=== PATIENT | male | born 1995 | race Asian ===

== ENCOUNTER 2022-07-27 19:40 | Emergency (ER) | payer SELFPAY ==
[~2022-07-27] VITALS: Ht 180.3 cm; Wt 81.6 kg
[2022-07-27 19:45] VITALS: BP_SYST 133
--- NOTE | 2022-07-27 19:57 | NUR ---
CALLED PT FOR TRIAGE. NO RESPONSE.
[2022-07-27 21:05] LABS: BASOPHILS # (AUTO) 0.1 K/uL (0.0-0.2); BASOPHILS % (AUTO) 1.5 % (0.0-2.0); EOSINOPHILS # (AUTO) 0.1 K/uL (0.0-0.4); EOSINOPHILS % (AUTO) 3.3 % (0.0-4.0); HEMATOCRIT 31.6 % (36-54); HEMOGLOBIN 10.7 g/dL (14.0-18.0); LYMPHOCYTES # (AUTO) 0.4 K/uL (1.0-5.5); LYMPHOCYTES % (AUTO) 10.9 % (20.5-51.5); MEAN CORPUSCULAR HEMOGLOBIN 29 pg (27-31); MEAN CORPUSCULAR HGB CONC 34 % (32-36); MEAN CORPUSCULAR VOLUME 86 fL (79.0-98.0); MONOCYTES # (AUTO) 0.3 K/uL (0.0-1.0); MONOCYTES % (AUTO) 8.9 % (1.7-9.3); NEUTROPHILS # (AUTO) 2.7 K/uL (1.8-7.7); NEUTROPHILS % (AUTO) 75.4 % (40.0-70.0); PLATELET COUNT (AUTO) 300 K/uL (130-430); RED CELL DISTRIBUTION WIDTH 15.6 % (9.0-15.0); WHITE BLOOD COUNT (AUTO) 3.6 K/uL (4.8-10.8)
--- NOTE | 2022-07-27 21:08 | NUR ---
Patient to ER bed 4 to gown for evaluation. Side rails up. Report given to MEHDI WYNNE.
--- NOTE | 2022-07-27 21:15 | NUR ---
PATIENT IS AWAKE AND ALERT BIB AMB FROM HOME C/O RLQ ABD PAIN W/ NAUSEA AND VOMITING ONSET TODAY. + FOR BLOOD IN THE URINE. PAIN STATED 05/25. SAFETY PRECAUTIONS IN PLACE, WILL CONTINUE TO MONITOR.
--- NOTE | 2022-07-27 21:25 | NUR ---
PAL JUNE SIN AT BEDSIDE EXAMINING PATIENT.
[2022-07-27] MEDS ORDERED: MORPHINE 4 MG INJ. 4 MG/ML VIAL IVP ONE (21:30)
[2022-07-27] MEDS ORDERED: NACL 0.9% 1,000 ML IV ONE (21:30)
[2022-07-27 21:31] LABS: CALCIUM 9.7 mg/dL (8.4-11.0); CREATININE 0.97 mg/dL (0.55-1.30)
[2022-07-27 21:37] LABS: ALBUMIN 3.4 g/dL (3.4-4.8); TOTAL BILIRUBIN 0.3 mg/dL (0.0-1.0)
[2022-07-27 21:41] LABS: BILIRUBIN,URINE NEGATIVE (NEGATIVE); BLOOD, URINE 3+ (NEGATIVE); CLARITY/URINE CLEAR (CLEAR); COLOR,URINE YELLOW (YELLOW); GLUCOSE,URINE NEGATIVE (NEGATIVE); KETONES,URINE NEGATIVE (NEGATIVE); LEUKOCYTE ESTERASE ,URINE 1+ (NEGATIVE); NITRITE, URINE NEGATIVE (NEGATIVE); PH,URINE 6.5 (5.0-8.0); PROTEIN URINE TRACE (NEGATIVE); UROBILINOGEN,URINE 0.2 (0.2-1.0)
[2022-07-27] MEDS ORDERED: ONDANSETRON HCL 4 MG/2 ML VIAL IVP ONE (21:45)
[2022-07-27] MEDS ORDERED: FAMOTIDINE PF 20 MG/2 ML VIAL IVP ONE (21:45)
[2022-07-27] MEDS ORDERED: PIPERACILLIN/TAZO 3.375 GM in NS 50 ML IV ONE (21:45)
[2022-07-27 21:51] LABS: BACTERIA,URINE FEW /HPF (None Seen); MUCUS,URINE None Seen /LPF (None Seen); RBC,URINE 20-50 /HPF (0-3)
[2022-07-27] MEDS ORDERED: PIPERACILLIN/TAZOBACTAM 3.375 GM/VIAL (ZOSYN) IV ONE (22:29)
--- NOTE | 2022-07-27 23:15 | NUR ---
PATIENT RESTING IN BED. VSS. WILL CONTINUE TO MONITOR.
[2022-07-27] MEDS ORDERED: HYDROmorphone 1 MG/ML INJ. CARTRIDGE IVP ONE (23:45)
[2022-07-28] MEDS ORDERED: LEVO750T64 PO (01:53)
[2022-07-28] MEDS ORDERED: HYDR-3927 PO (01:53)
[2022-07-28] MEDS ORDERED: HYDROcodone/ACETAMIN 5-325 MG TAB (NORCO/ VICODIN) PO ONE (02:00)
[2022-07-28 02:15] VITALS: BP_SYST 137
--- NOTE | 2022-07-28 02:15 | NUR ---
Patient given written and verbal discharge instructions and verbalizes understanding. ER MD MARTINEZ discussed with patient the results and treatment provided. Patient in stable condition. ID arm band removed. IV catheter removed intact and dressing applied, no active bleeding. Rx of NORCO, AND LEVAQUIN given. Patient educated on pain management and to follow up with PMD. Pain Scale 3/10. Opportunity for questions provided and answered. Medication side effect fact sheet provided.
== END 2022-07-28 02:15 | disposition home or self-care (01) ==
LOC: SED 19:40
DX: N39.0 Urinary tract infection, site not specified (principal); R10.31 Right lower quadrant pain; R30.0 Dysuria; R11.0 Nausea; Z79.899 Other long term (current) drug therapy
CPT/HCPCS: 99284; 74176; 96365; 96375; 71045; 80053; 81000; 83690; 85025; 87040; 87086; 36415; 76376; 83605; J3490; J2405; J2543; J1170; J2270; J7030

== ENCOUNTER 2023-04-25 02:00 | Emergency (ER) | payer MEDICAID ==
[~2023-04-25] VITALS: Ht 182.9 cm; Wt 69.9 kg
[~2023-04-25 02:00] MED LIST: HYDR-3927 PO; LEVO750T64 PO
[2023-04-25 02:10] VITALS: BP_SYST 126; PULSE 109; RESP 18; TEMP 97; O2SAT 98
[2023-04-25] MEDS ORDERED: MORPHINE 4 MG INJ. 4 MG/ML VIAL IVP ONE (02:15)
[2023-04-25] MEDS ORDERED: fentaNYL CITRATE/PF 100 MCG/2 ML AMP IVP ONE (02:30)
[2023-04-25] MEDS ORDERED: NACL 0.9% 1,000 ML IV ONE (03:00)
[2023-04-25 03:45] LABS: CALCIUM 9.3 mg/dL (8.4-11.0); CREATININE 0.77 mg/dL (0.55-1.30); POTASSIUM 3.5 mmol/L (3.5-5.1)
[2023-04-25] MEDS ORDERED: HYDROmorphone 1 MG/ML INJ. CARTRIDGE IVP ONE ×2 (03:45→04:00)
[2023-04-25 03:50] LABS: ALBUMIN 3.8 g/dL (3.4-4.8); TOTAL BILIRUBIN 0.6 mg/dL (0.0-1.0); TOTAL PROTEIN, SERUM 8.2 g/dL (6.4-8.3)
[2023-04-25 03:51] LABS: BASOPHILS % (AUTO) 0.2 % (0.0-2.0); EOSINOPHILS % (AUTO) 0.6 % (0.0-4.0); HEMATOCRIT 30.4 % (36-54); HEMOGLOBIN 10.2 g/dL (14.0-18.0); LYMPHOCYTES # (AUTO) 0.4 K/uL (1.0-5.5); LYMPHOCYTES % (AUTO) 11.9 % (20.5-51.5); MEAN CORPUSCULAR HEMOGLOBIN 29 pg (27-31); MEAN CORPUSCULAR HGB CONC 33 % (32-36); MEAN CORPUSCULAR VOLUME 86 fL (79.0-98.0); MONOCYTES # (AUTO) 0.1 K/uL (0.0-1.0); MONOCYTES % (AUTO) 1.9 % (1.7-9.3); NEUTROPHILS # (AUTO) 2.7 K/uL (1.8-7.7); NEUTROPHILS % (AUTO) 85.4 % (40.0-70.0); PLATELET COUNT (AUTO) 169 K/uL (130-430); RED BLOOD CELL COUNT(AUTO) 3.55 MIL/uL (4.2-6.2); RED CELL DISTRIBUTION WIDTH 14.2 % (9.0-15.0); WHITE BLOOD COUNT (AUTO) 3.1 K/uL (4.8-10.8)
[2023-04-25 05:35] VITALS: BP_SYST 108; PULSE 83; RESP 15; TEMP 97.7; O2SAT 97
== END 2023-04-25 05:35 | disposition home or self-care (01) ==
LOC: SED 02:00
DX: C79.9 Secondary malignant neoplasm of unspecified site (principal); G89.18 Other acute postprocedural pain; M25.551 Pain in right hip; Z85.51 Personal history of malignant neoplasm of bladder; Z85.54 Personal history of malignant neoplasm of ureter; Z79.899 Other long term (current) drug therapy
CPT/HCPCS: 99285; 96374; 71045; 96361; 96375; 80053; 85025; 36415; 96376; J3010; J1170; J7030; J2270

== ENCOUNTER 2023-04-27 20:53 | Emergency (ER) | payer MEDICAID ==
[~2023-04-27] VITALS: Ht 172.7 cm; Wt 65.8 kg
[2023-04-27 21:00] VITALS: BP_SYST 125; PULSE 106; RESP 18; TEMP 98.4; O2SAT 99
[2023-04-27] MEDS ORDERED: MORPHINE 4 MG INJ. 4 MG/ML VIAL IVP ONE (23:00)
[2023-04-27] MEDS ORDERED: NACL 0.9% 1,000 ML IV ONE ×2 (23:00)
[2023-04-27] MEDS ORDERED: HYDROmorphone 1 MG/ML INJ. CARTRIDGE IVP ONE (23:30)
[2023-04-28] MEDS ORDERED: HYDROmorphone 1 MG/ML INJ. CARTRIDGE IVP ONE (01:45)
[2023-04-28 03:40] VITALS: BP_SYST 101; PULSE 88; RESP 16; TEMP 98.4; O2SAT 98
== END 2023-04-28 03:40 | disposition home or self-care (01) ==
LOC: SED 20:53
DX: R10.30 Lower abdominal pain, unspecified (principal); C67.9 Malignant neoplasm of bladder, unspecified; Z85.51 Personal history of malignant neoplasm of bladder; Z85.54 Personal history of malignant neoplasm of ureter; Z79.899 Other long term (current) drug therapy
CPT/HCPCS: 99285; 74176; 96374; 71045; 96361; 76376; 96376; J1170 ×2; J7030

== ENCOUNTER 2023-07-17 23:13 | Emergency (ER) | payer MEDICAID ==
[~2023-07-17] VITALS: Ht 177.8 cm; Wt 68.0 kg
[2023-07-17 23:23] VITALS: BP_SYST 109; PULSE 110; RESP 16; TEMP 97.9; O2SAT 100
[2023-07-17] MEDS ORDERED: NACL 0.9% 1,000 ML IV ONE (23:30)
[2023-07-17] MEDS ORDERED: HYDROmorphone 1 MG/ML INJ. CARTRIDGE IVP ONE (23:30)
[2023-07-18] MEDS ORDERED: MORPHINE 4 MG INJ. 4 MG/ML VIAL IM ONE (00:30)
[2023-07-18 00:40] LABS: BILIRUBIN,URINE NEGATIVE (NEGATIVE); BLOOD, URINE NEGATIVE (NEGATIVE); COLOR,URINE YELLOW (YELLOW); GLUCOSE,URINE NEGATIVE (NEGATIVE); KETONES,URINE NEGATIVE (NEGATIVE); LEUKOCYTE ESTERASE ,URINE 1+ (NEGATIVE); NITRITE, URINE POSITIVE (NEGATIVE); PROTEIN URINE NEGATIVE (NEGATIVE); UROBILINOGEN,URINE 0.2 (0.2-1.0)
[2023-07-18 00:52] LABS: CLARITY/URINE SLIGHTLY CLOUDY (CLEAR)
[2023-07-18 00:53] LABS: RBC,URINE 0-3 /HPF (0-3)
[2023-07-18 00:54] LABS: BACTERIA,URINE MANY /HPF (None Seen); WBC,URINE 20-50 /HPF (0-3)
[2023-07-18] MEDS ORDERED: cefTRIAXone 1 GM IVPB PREMIX 50 ML IV ONE (01:15)
[2023-07-18 01:24] LABS: CALCIUM 9.9 mg/dL (8.4-11.0); CREATININE 0.74 mg/dL (0.55-1.30); POTASSIUM 3.5 mmol/L (3.5-5.1)
[2023-07-18 01:29] LABS: HEMOGLOBIN 9.7 g/dL (14.0-18.0); MEAN CORPUSCULAR HEMOGLOBIN 31 pg (27-31); MEAN CORPUSCULAR HGB CONC 35 % (32-36); MEAN CORPUSCULAR VOLUME 89 fL (79.0-98.0); PLATELET COUNT (AUTO) 96 K/uL (130-430); RED BLOOD CELL COUNT(AUTO) 3.15 MIL/uL (4.2-6.2); RED CELL DISTRIBUTION WIDTH 15.6 % (9.0-15.0)
[2023-07-18 01:30] LABS: ALBUMIN 3.8 g/dL (3.4-4.8); TOTAL BILIRUBIN 0.5 mg/dL (0.0-1.0); TOTAL PROTEIN, SERUM 7.7 g/dL (6.4-8.3)
[2023-07-18 01:43] LABS: WHITE BLOOD COUNT (AUTO) 0.6 K/uL (4.8-10.8)
[2023-07-18 02:20] LABS: EOSINOPHILS % (MANUAL) 4 % (0-7); LYMPHOCYTES % (MANUAL) 40 % (20-46); MONOCYTES % (MANUAL) 25 % (0-11)
[2023-07-18 02:21] LABS: BASOPHILS % (MANUAL) 0 % (0-2)
[2023-07-18 02:23] LABS: ANISOCYTOSIS 1+
[2023-07-18 02:24] LABS: PLATELET ESTIMATE DECREASED (ADEQUATE)
[2023-07-18] MEDS ORDERED: HYDROmorphone 1 MG/ML INJ. CARTRIDGE IVP ONE (03:45)
[2023-07-18] MEDS ORDERED: SULF1TAB48 PO (05:37)
[2023-07-18 05:40] VITALS: BP_SYST 108; PULSE 83; RESP 20; TEMP 97.7; O2SAT 98
== END 2023-07-18 06:10 | disposition left against medical advice (07) ==
LOC: SED 23:13
DX: R10.84 Generalized abdominal pain (principal); K59.00 Constipation, unspecified; Z85.51 Personal history of malignant neoplasm of bladder; Z79.899 Other long term (current) drug therapy
CPT/HCPCS: 99291; 96365; 96375; 85027; 80053; 81001; 83690; 85007; 87040; 87086; 36415; 96376; 83605; 96372; 81000; 74150; 76376; 81015; J1170 ×2; J0696; J2270